=== PATIENT | female | born 1985 | race Caucasian/White ===

== ENCOUNTER → 2020-06-24 | Outpatient (CLI) | payer BC ==
[2020-06-24 13:59] LABS: microscopic required? NO
[2020-06-24 14:08] LABS: UA SPECIFIC GRAVITY >=1.030 (1.005-1.035); urine erythrocyte NEGATIVE (NEGATIVE)
== END | disposition home or self-care (01) ==
LOC: LB 13:23
DX: Z34.00 Encounter for supervision of normal first pregnancy, unspecified trimester (principal); Z33.1 Pregnant state, incidental; Z14.1 Cystic fibrosis carrier
CPT/HCPCS: 86787

== ENCOUNTER → 2020-07-08 | Outpatient (CLI) | payer BC, OTHER | END | disposition home or self-care (01) | LOC: LB 11:45 | DX: Z33.1 Pregnant state, incidental (principal) ==